=== PATIENT | male | born 1935 | race Native Hawaiian/Other Pacific Islander ===

== ENCOUNTER 2016-04-12 16:39 | Observation (INO) | payer OTHER ==
[~2016-04-12] VITALS: Ht 167.6 cm; Wt 127.0 kg
[~2016-04-12 16:39] MED LIST: CETI10TA PO; DICL75TA4 PO; ENALAPRIL10 MG PO; FLUC200T PO; FURO20TA67 PO; HYDR5TAB9 PO; LORTAB1 TAB PO; METO50TA27 PO; METO50TA63 PO; MICRO-K10 MEQ OR; MISO200T2 PO; NORCO 10/325***1 TAB PO; OXYB5TAB56 PO; OXYBUTYNIN10 MG PO; PANT40TA PO; PLETAL50 MG PO; PRAVACHOL20 MG PO; TIZA4TAB5 PO; TRAM50TA PO; WARF3TAB12 PO; WARF4TAB7 PO; ZANTAC 75 PO
[2016-04-12 19:55] VITALS: BP 137/66; TEMP 99.1; Ht 167.6 cm; Wt 127.0 kg
[2016-04-12 20:00] VITALS: BP 136/72; TEMP 98.7
[2016-04-12 20:20] LABS: PLATELET COUNT 255 K/uL (142-355)
[2016-04-12 20:49] LABS: POTASSIUM 3.3 mmol/L (3.6-5.2); SODIUM 135 mmol/L (136-145)
[2016-04-13] VITALS: BP 113/47; TEMP 99.7
[2016-04-13 04:00] VITALS: BP 139/75; TEMP 98.3
[2016-04-13 08:00] VITALS: BP 133/55; TEMP 98.5
[2016-04-13] MEDS ORDERED: CARBTAB13 PO (08:48)
[2016-04-13] MEDS ORDERED: GABA100C2 PO (08:48)
[2016-04-13] MEDS ORDERED: SPIRIVA IN (08:49)
[2016-04-13] MEDS ORDERED: XARELTO20 MG PO (08:50)
[2016-04-13 10:14] LABS: PLATELET COUNT 218 K/uL (142-355)
[2016-04-13 10:30] LABS: POTASSIUM 3.3 mmol/L (3.6-5.2)
[2016-04-13 12:00] VITALS: BP 155/85; TEMP 97.6
--- NOTE | 2016-04-13 13:27 | NUR ---
DC INSTRUCTIONS GIVEN TO PT AND . VERBALIZED UNDERSTANDING. PT SITTING UP IN CHAIR AT THIS TIME. NAD NOTED. UR TO SET UP NEURLOGY REFERRAL. INSTRUCTED TO FOLLOW UP WITH DR MOREJON IN 1 WEEK AND RTO CALL FOR APPT OFFICE IS CLOSED AT THIS TIME. VERBALIZES UNDERSTANDING. IV DC'D WITH CANNULA INTACT AND SITE CARE PROVIDED.
--- NOTE | 2016-04-13 13:44 | NUR ---
PT LEFT VIA WC AT THIS TIME
--- NOTE | 2016-04-13 15:24 | NUR ---
PATIENT WAS DISCHARGED HOME WITH FAMILY AND WAS REFERRED TO [facility] FOR SN, PT, AND OT.
--- NOTE | 2016-04-13 15:40 | NUR ---
04/13/16-DR MOREJON ASKED ME TO SET UP NEUROLOGY APPT FOR MR FRYE, MR FRYE TOLD ME NOT TO SET HIM UP AN APPT FOR NEUROLOGY. SHE SAYS SHE WILL WAIT UNTIL SHE SEES DR MOREJON IN ONE WEEK. SHE ALSO STATED THAT SHE WOULD HAVE TO WAIT & TALK WITH HER DAUGHTER AND NIECE ABOUT MR FRYE RECEIVING ANY PHYSICAL THERAPY.
== END 2016-04-13 13:46 | disposition home or self-care (01) ==
LOC: MED/SURG 16:39
PROVIDERS: ADMIT Family Medicine
DX: I50.23 Acute on chronic systolic (congestive) heart failure (principal); E86.0 Dehydration; J44.1 Chronic obstructive pulmonary disease with (acute) exacerbation; R06.02 Shortness of breath; F41.8 Other specified anxiety disorders; R50.9 Fever, unspecified; R53.83 Other fatigue; R41.0 Disorientation, unspecified; R45.1 Restlessness and agitation; N39.0 Urinary tract infection, site not specified; R09.02 Hypoxemia; G20 Parkinson's disease
CPT/HCPCS: 36415; 36591; 80053; 81000; 83735; 83880; 85027; 85651; 87040; 94640; 94664; 94760; 96365; 96366; 99220; G0378; G0379

== ENCOUNTER 2016-08-21 13:37 | Observation (INO) | payer OTHER ==
[~2016-08-21] VITALS: Ht 170.2 cm; Wt 104.5 kg
[~2016-08-21 13:37] MED LIST changes: +CARBTAB13 PO; +GABA100C2 PO; +SPIRIVA IN; +XARELTO20 MG PO
[2016-08-21 13:58] VITALS: BP 121/70; TEMP 97.7
[2016-08-21] MEDS ORDERED: FURO40TA93 PO (14:02)
[2016-08-21] MEDS ORDERED: TAMS0.4C PO ×2 (14:03→14:04)
[2016-08-21 16:29] LABS: POTASSIUM 3.5 mmol/L (3.6-5.2); SODIUM 136 mmol/L (136-145)
[2016-08-21 17:09] LABS: PLATELET COUNT 221 K/uL (142-355)
[2016-08-22] VITALS (7 sets, daily range): BP systolic 96–143; BP diastolic 47–76; TEMP 97.6–98.4; Ht 170.2 cm; Wt 104.5 kg
--- NOTE | 2016-08-22 01:10 | NUR ---
PATIENT RECEIVED FROM ER VIA STRETCHER. ALERT AND ORIENTED X 3. PATIENT AND GIVEN EDUCATION REGARDING BED CONTROLS AND CALL LIGHT. INSTRUCTED TO KEEP BED IN LOW POSITION. 20G TO RT UPPER ARM INTACT AND PATENT. AT BEDSIDE.
[2016-08-22 08:24] LABS: PLATELET COUNT 211 K/uL (142-355)
[2016-08-22 08:35] LABS: POTASSIUM 3.5 mmol/L (3.6-5.2); SODIUM 139 mmol/L (136-145)
--- NOTE | 2016-08-22 10:45 | NUR ---
STOOL COLLECTED AT THIS TIME TIME AFTER LOOSE BOWEL MOVEMENT. PT CLEANED, BATHED AND LINENS CHANGED. LARGE RED DRY PATCH NOTED ON BACK OF L THIGH. CIRCLED AND NOTIFIED DAHLIA WISEMAN.
[2016-08-23] VITALS: BP 113/53; TEMP 97.4
[2016-08-23 04:00] VITALS: BP 117/59; TEMP 97.9
[2016-08-23 06:52] LABS: PLATELET COUNT 215 K/uL (142-355)
[2016-08-23 07:47] VITALS: BP 135/62; TEMP 97.4
[2016-08-23 07:56] LABS: POTASSIUM 3.6 mmol/L (3.6-5.2); SODIUM 142 mmol/L (136-145)
[2016-08-23 12:00] VITALS: BP 114/59; TEMP 97.8
[2016-08-23 16:00] VITALS: BP 127/58; TEMP 97.6
[2016-08-23 20:00] VITALS: BP 106/79; TEMP 97.7
[2016-08-24] VITALS: BP 131/56; BP 131/68; TEMP 97.8; TEMP 98.3
[2016-08-24 04:00] VITALS: BP 152/82; TEMP 97.6
--- NOTE | 2016-08-24 06:26 | NUR ---
08/24/16 0625 RESTED WELL DURING THE NIGHT NO DIARRHEA DURING THE NIGHT.CC
[2016-08-24 06:40] LABS: PLATELET COUNT 200 K/uL (142-355)
[2016-08-24 06:59] LABS: POTASSIUM 3.2 mmol/L (3.6-5.2); SODIUM 139 mmol/L (136-145)
[2016-08-24 07:57] VITALS: BP 143/72; TEMP 97.9
[2016-08-24 12:00] VITALS: BP 146/76; TEMP 97.9
--- NOTE | 2016-08-24 12:06 | NUR ---
IV SITE D/C'D WITH TIP INTACT AND SITE CARE DONE.
--- NOTE | 2016-08-24 13:16 | NUR ---
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
--- NOTE | 2016-08-24 15:10 | NUR ---
D/C INSTRUCTIONS GIVEN TO DAUGHTER AND SHE VERBALIZES UNDERSTANDING. PT OUT VIA W/C PER MYSELF AND DINO ALAINS.
== END 2016-08-24 15:10 | disposition home or self-care (01) ==
LOC: ED 13:37 → MED/SURG 08-22 00:19
PROVIDERS: Emergency Medicine; ADMIT Specialist
DX: E86.0 Dehydration (principal); G20 Parkinson's disease; R53.1 Weakness; I48.91 Unspecified atrial fibrillation; R19.7 Diarrhea, unspecified; R10.9 Unspecified abdominal pain
CPT/HCPCS: 36415; 36591; 36600; 80053; 81000; 82150; 82550; 82553; 82805; 83605; 83690; 83735; 84100; 84484; 85027; 85379; 87045; 87205; 87328; 87329; 87493; 87798; 87899; 93005; 96361; 96365; 96366; 96374; 96375; 96376; 99220; 99284; G0378; J1720; J2175; J2405; J3411; J3475; J3490

== ENCOUNTER 2016-11-26 11:27 | Observation (INO) | payer OTHER ==
[~2016-11-26] VITALS: Ht 177.8 cm; Wt 99.8 kg
[~2016-11-26 11:27] MED LIST changes: +FURO40TA93 PO; +TAMS0.4C PO
[2016-11-26 13:48] LABS: PLATELET COUNT 346 K/uL (142-355)
[2016-11-26 16:00] VITALS: BP 149/74; TEMP 97.6
[2016-11-26 16:16] VITALS: BP 116/65; TEMP 98; Ht 177.8 cm; Wt 99.8 kg
[2016-11-26 20:21] VITALS: BP 135/69; TEMP 97.5
[2016-11-27] VITALS: BP 114/63; TEMP 97.6
[2016-11-27 04:00] VITALS: BP 109/63; TEMP 97.8
[2016-11-27 05:16] LABS: PLATELET COUNT 296 K/uL (142-355)
[2016-11-27 05:48] LABS: POTASSIUM 3.2 mmol/L (3.6-5.2)
[2016-11-27 08:00] VITALS: BP 156/69; TEMP 97.7
[2016-11-27 12:00] VITALS: BP 147/86; TEMP 97.7
--- NOTE | 2016-11-27 14:08 | NUR ---
IV SITE D/C'D WITH TIP INTACT AND SITE CARE DONE. FLANNERY D/C'D AND PT TOLERATED WELL.
--- NOTE | 2016-11-27 15:25 | NUR ---
PT OUT VIA W/C WITH NAD PER KITTY FALCON PCT.
== END 2016-11-27 15:25 | disposition home or self-care (01) ==
LOC: MED/SURG 11:27
PROVIDERS: ADMIT Family Medicine
DX: J44.1 Chronic obstructive pulmonary disease with (acute) exacerbation (principal); E66.01 Morbid (severe) obesity due to excess calories; F03.90 Unspecified dementia, unspecified severity, without behavioral disturbance, psychotic disturbance, mood disturbance, and anxiety; Z91.11 Patient's noncompliance with dietary regimen; Z91.14 Patient's other noncompliance with medication regimen; I50.9 Heart failure, unspecified
CPT/HCPCS: 36415; 51702; 80053; 81000; 82805; 83735; 83880; 85027; 93005; 94640; 94664; 94760; 96365; 96375; 99220; G0378; G0379; J1940

== ENCOUNTER 2017-06-29 16:56 | Outpatient (CLI) | payer OTHER ==
[2017-06-29] MEDS ORDERED: HYDR10TA51 PO (17:35)
[2017-06-29] MEDS ORDERED: ZANTAC 75 PO (17:36)
[2017-06-29] MEDS ORDERED: ROPINIROLE0.5 MG PO (17:38)
== END 2017-06-29 17:03 | disposition short-term general hospital (02) ==
LOC: AMB 16:56
DX: R55 Syncope and collapse (principal)
CPT/HCPCS: A0425; A0427

== ENCOUNTER 2017-06-29 17:05 | Emergency (ER) | payer OTHER ==
[~2017-06-29] VITALS: Ht 177.8 cm; Wt 105.2 kg
[2017-06-29] MEDS ORDERED: HYDR10TA51 PO (17:35)
[2017-06-29] MEDS ORDERED: ZANTAC 75 PO (17:36)
[2017-06-29] MEDS ORDERED: ROPINIROLE0.5 MG PO (17:38)
[2017-06-29 19:54] LABS: PLATELET COUNT 333 K/uL (142-355)
[2017-06-29 20:09] LABS: PARTIAL THROMBOPLASTIN TIME 27.8 SECONDS (24.5-33.6)
[2017-06-30 01:10] VITALS: BP 161/72; TEMP 97.6
== END 2017-06-30 01:11 | disposition short-term general hospital (02) ==
LOC: ED 17:05
PROVIDERS: Specialist
DX: R41.82 Altered mental status, unspecified (principal); I48.91 Unspecified atrial fibrillation
CPT/HCPCS: 36600; 80053; 82550; 82553; 82805; 83605; 83735; 84100; 84484; 85027; 85610; 85730; 99283